=== PATIENT | female | born 1960 | race Caucasian/White ===

== ENCOUNTER 2022-09-18 17:40 | Inpatient (IN) | payer OTHER, SELFPAY ==
[2022-09-18] VITALS (29 sets, daily range): BP systolic 154–197; BP diastolic 90–135; PULSE 90–108; RESP 6–35; TEMP 36.8–37.1; O2SAT 80–97; BMI 30.1; BMI 28.6
--- NOTE | 2022-09-18 17:43 | ECG_ITS ---
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
--- NOTE | 2022-09-18 17:43 | XR_ITS ---
The [address] [address] Patient Name: JEWEL MARS MRN: [id number] date: 1960 Sex: F Assigned Patient Location: ED.MAIN Current Patient Location: ER Accession/Order Number: [id number] Exam Date: 09/18/2022 18:02 Report Date: 09/18/2022 18:39 At the request of: BLAS CHRISTIANSON Procedure: XR chest 1V EXAM: XR chest 1V HISTORY: COPD exacerbation COMPARISON: 06/09/2022 TECHNIQUE: Chest X-ray AP, 1 view FINDINGS: Support devices: None. Lungs/pleura: No pneumothorax. There is right lower lobe consolidation, representing pneumonia. There are persistent bilateral lower lobe reticular opacities, may represent fibrotic changes. Heart and mediastinum: Normal contours. Bones: No acute abnormality identified. Impression: right lower lobe consolidation, representing pneumonia. Posttreatment follow-up is recommended to evaluate resolution. Electronically authenticated by: MOY MESSER Date: 09/18/2022 18:39
[2022-09-18 18:03] LABS: Basophils Percent Auto 0.2 % (0.2-2.0); Eosinophils Percent Auto 0.5 % (0.9-7.0); Hematocrit 33.2 % (36.0-48.0); Hemoglobin 10.8 g/dL (12.0-16.0); Immature Granulocytes Abs Auto 0.01 10^3/uL (0.00-0.03); Immature Granulocytes Pct Auto 0.2 % (0.0-0.5); Lymphocytes Absolute Auto 0.7 10^3/uL (1.2-3.8); Mean Corpuscular HGB Conc 32.5 g/dL (29.9-35.2); Mean Corpuscular Hemoglobin 28.8 pg (26.7-34.0); Mean Corpuscular Volume 88.5 fL (81.0-99.0); Mean Platelet Volume 9.4 fL (9.5-13.5); Monocytes Absolute Auto 0.5 10^3/uL (0.3-0.8); Neutrophils Absolute Auto 4.5 10^3/uL (1.4-6.5); Neutrophils Percent Auto 79.1 % (43.0-75.0); Platelet Count 235 10^3/uL (150-450); Red Blood Count 3.75 10^6/uL (4.20-5.40); Red Cell Distribution Width 19.7 % (11.0-15.0); White Blood Count 5.7 10^3/uL (4.0-11.0)
--- NOTE | 2022-09-18 18:11 | PC.NURSE ---
pt is a poor historian related to home medications states they are at [facility] [place]- this nurse researches med list from [facility] and inputs medications from list at [facility]
--- NOTE | 2022-09-18 18:12 | PC.NURSE ---
covid swab obtained and sent to lab
[2022-09-18] MEDS: IPRATROPIUM/ALBUTEROL SULFATE 3 ML AMPUL.NEB IH (18:21)
[2022-09-18] MEDS: ALBUTEROL SULFATE 2.5 MG/3 ML VIAL NEB IH ×2 (18:21→22:43)
[2022-09-18 18:22] LABS: INR 0.95; Partial Thromboplastin Time 33.4 sec (22.3-36.2); Prothrombin Time 10.1 sec (9.0-11.6)
[2022-09-18 18:23] LABS: Lactate/Lactic Acid 0.8 mmol/L (0.4-2.0)
[2022-09-18 18:27] LABS: Alanine Aminotransferase 11 U/L (14-59); Albumin Globulin Ratio 0.8; Albumin Level 3.2 g/dL (3.4-5.0); Alkaline Phosphatase 153 U/L (46-116); Anion Gap 14.9; Aspartate Amino Transferase 10 U/L (15-37); BUN Creatinine Ratio 11.3; Bilirubin Total 0.5 mg/dL (0.2-1.0); Calcium 8.8 mg/dL (8.5-10.1); Chloride 93 mmol/L (98-107); Estimated GFR (African America >60 (>=60); Estimated GFR (Non-African Ame >60 (>=60); Globulin 4.2 g/dL; Glucose 131 mg/dL (74-106); Potassium 3.9 mmol/L (3.5-5.1); Sodium 129 mmol/L (136-145); Total Protein 7.4 g/dL (6.4-8.2); Troponin I High Sensitivity 5.7 pg/mL (4.0-51.3)
--- NOTE | 2022-09-18 18:38 | PC.NURSE ---
resp at [facility]
--- NOTE | 2022-09-18 18:56 | ED_ITS ---
HPI - SOB/Dyspnea General Chief Complaint: Shortness of Breath/Dyspnea Stated Complaint: SHORTNESS OF BREATH Time Seen by Provider: 09/18/22 17:43 Source: patient Mode of arrival: Wheelchair Limitations: no limitations History of Present Illness HPI Narrative: Patient is a 62-year-old female to history of chronic obstructive pulmonary disease who presents the emergency department for the evaluation of increasing shortness of breath over the last several days. She was referred from her PCP office for admission. She was eighty-nine percent on room air in the office, she does not wear home oxygen. She arrives hypoxic to the Emergency Room by private car. She denies chest pain. She has had cough with some sputum production but no fevers, chest pain or hemoptysis. She has a history of congestive heart failure and takes medications for diuretics daily. She does not believe she has been on any recent antibiotics or steroids Related Data Home Medications Medication Instructions Recorded Confirmed aspirin 162.5 mg capsule,extended 162.5 mg PO DAILY 09/18/22 09/18/22 release 24 hr furosemide 40 mg tablet 40 mg PO QDAY 09/18/22 09/18/22 gabapentin 600 mg tablet 600 mg PO Q8H 09/18/22 09/18/22 metoprolol succinate 100 mg 100 mg PO QDAY 09/18/22 09/18/22 tablet,extended release 24 hr oxcarbazepine 300 mg tablet 300 mg PO TID 09/18/22 09/19/22 oxybutynin chloride 5 mg tablet 5 mg PO BID 09/18/22 09/19/22 rivaroxaban 20 mg tablet (Xarelto) 20 mg PO Q24H 09/18/22 09/18/22 tizanidine 4 mg tablet 8 mg PO .QHS 09/18/22 09/19/22 venlafaxine 75 mg tablet 75 mg PO BID 09/18/22 09/19/22 Previous Rx's Medication Instructions Recorded levofloxacin 750 mg tablet 750 mg PO DAILY 7 days #7 tabs 09/21/22 prednisone 10 mg tablet 40 mg PO DAILY #32 tabs 09/21/22 Allergies Allergy/AdvReac Type Severity Reaction Status Date / Time No Known Drug Allergies Allergy Verified 09/18/22 17:45 Review of Systems ROS Constitutional Denies: fever or chills Ears, nose, mouth, and throat Denies: throat pain Cardiovascular Denies: chest pain Respiratory Reports: shortness of breath and cough Gastrointestinal Denies: nausea or vomiting Integumentary/Breast Denies: rash [facility] Medical History (Updated 09/18/22 @ 22:15 by Chris David MD) Surgical History (Updated 09/18/22 @ 21:18 by Seble Russell) Social History Gender Identity: female Exam Narrative Exam Narrative: Gen.: Awake, alert, in no distress Head: Normocephalic, atraumatic ENT: Moist mucous membranes Respiratory: No respiratory distress, hypoxic, inspiratory and expiratory wheezing with diminished lung sounds Cardio: Irregular, tachycardic Extremities: Moves extremities equally, no injuries noted Psych: Normal mood and affect Neuro: No focal neuro deficit Skin: Warm, dry, intact Constitutional Vital Signs - 24 hr 09/18/22 17:45 09/18/22 18:00 09/18/22 18:01 Temperature Pulse Rate Pulse Rate [Monitor] 107 H Respiratory Rate 20 Blood Pressure 168/104 H Blood Pressure [Left Arm] Pulse Oximetry 80 L 93 L Oxygen Delivery Method Room Air Nasal Cannula Oxygen Delivery Flow Rate 5 09/18/22 18:06 09/18/22 18:27 09/18/22 17:51 Temperature Pulse Rate 95 H Pulse Rate [Monitor] 98 H Respiratory Rate 18 6 L Blood Pressure Blood Pressure [Left Arm] Pulse Oximetry 94 L 95 94 L Oxygen Delivery Method Nasal Cannula Nasal Cannula Oxygen Delivery Flow Rate 2.5 2.5 09/18/22 17:53 09/18/22 17:53 09/18/22 17:53 Temperature Pulse Rate 95 H 107 H 103 H Pulse Rate [Monitor] Respiratory Rate 23 35 H 30 H Blood Pressure 192/122 H 192/122 H Blood Pressure [Left Arm] Pulse Oximetry 94 L 92 L 94 L Oxygen Delivery Method Oxygen Delivery Flow Rate 09/18/22 18:08 09/18/22 18:21 09/18/22 18:08 Temperature Pulse Rate 95 H 102 H 100 H Pulse Rate [Monitor] Respiratory Rate 28 H 20 29 H Blood Pressure 176/105 H 176/105 H Blood Pressure [Left Arm] Pulse Oximetry 94 L 92 L 92 L Oxygen Delivery Method Oxygen Delivery Flow Rate 09/18/22 18:15 09/18/22 18:30 09/18/22 18:32 Temperature Pulse Rate 105 H 96 H 105 H Pulse Rate [Monitor] Respiratory Rate 20 12 12 Blood Pressure 180/105 H 183/130 H 188/110 H Blood Pressure [Left Arm] Pulse Oximetry 94 L 93 L 97 Oxygen Delivery Method Oxygen Delivery Flow Rate 09/18/22 18:37 09/18/22 18:43 09/18/22 20:04 Temperature Pulse Rate 97 H Pulse Rate [Monitor] 108 H Respiratory Rate 20 18 Blood Pressure 154/90 H Blood Pressure [Left Arm] 188/110 H Pulse Oximetry 95 93 L Oxygen Delivery Method Nasal Cannula Oxygen Delivery Flow Rate 2.5 09/18/22 20:05 09/18/22 18:32 09/18/22 18:45 Temperature 98.2 F Pulse Rate 97 H 97 H Pulse Rate [Monitor] Respiratory Rate 16 17 Blood Pressure 188/110 H 176/103 H Blood Pressure [Left Arm] Pulse Oximetry 92 L 91 L Oxygen Delivery Method Oxygen Delivery Flow Rate 09/18/22 19:00 09/18/22 19:16 09/18/22 19:30 Temperature Pulse Rate 108 H 93 H 104 H Pulse Rate [Monitor] Respiratory Rate 23 21 20 Blood Pressure 155/132 H 197/135 H 170/109 H Blood Pressure [Left Arm] Pulse Oximetry 91 L 92 L 90 L Oxygen Delivery Method Oxygen Delivery Flow Rate 09/18/22 19:45 09/18/22 20:00 Temperature Pulse Rate 108 H 101 H Pulse Rate [Monitor] Respiratory Rate 19 21 Blood Pressure 163/110 H 161/102 H Blood Pressure [Left Arm] Pulse Oximetry 91 L 89 L Oxygen Delivery Method Oxygen Delivery Flow Rate Course Course Hospital Course: Patient admitted with Respiratory distress, acute hypoxia, tachycardia, uncontrolled hypertension, elevated BNP secondary to right lower lobe pneumonia with acute exacerbation of COPD with acute hypoxic respiratory failure. Started on IV antibiotics, aerosol treatments, IV antibiotics, sputum culture is still pending at this time but should be available later today or tomorrow, over last 24 hours patient has been able to be weaned off of her supplemental oxygen, examination is ambulating well without hypoxia this morning she will be discharged home in improving condition. Medications see list. Follow-up with me in the office in 2 to 3 days. Hyperkalemia this morning likely secondary to Aldactone potassium supplementation and diuresis. We will give 1 dose of Kayexalate. Hold her potassium and Aldactone at home. Vital Signs Vital signs: Vital Signs Pulse Rate 107 H 09/18/22 17:45 Respiratory Rate 20 09/18/22 17:45 Pulse Oximetry 80 L 09/18/22 17:45 Oxygen Delivery Method Room Air 09/18/22 17:45 Temperature 99.7 F H 09/21/22 05:27 Pulse Rate 91 H 09/21/22 05:27 Respiratory Rate 18 09/21/22 05:27 Blood Pressure 125/79 H 09/21/22 05:27 Pulse Oximetry 91 L 09/21/22 10:40 Oxygen Delivery Method Room Air 09/21/22 10:40 Oxygen Delivery Flow Rate 2 09/20/22 05:26 MDM - SOB/Dyspnea MDM Narrative Medical decision making narrative: Patient was treated with oxygen by nasal cannula with improvement of hypoxia, breathing treatments were given in the Emergency Room and she was also given Solu-Medrol. Sepsis order set was followed, although the patient was not given IV fluids she has a history of congestive heart failure and has a normal blood pressure. Chest x-ray shows a right lower lobe pneumonia and the patient was given azithromycin and Rocephin for pneumonia. Blood cultures are pending. Covid test was obtained. We will admit to the hospitalist service with further evaluation and treatment per Dr. Anand. Medical Records Attestation: I reviewed the patient's medical records. Lab Data Attestation: I reviewed the patient's lab results. Labs: Lab Results 09/18/22 Range/Units 17:55 WBC 5.7 (4.0-11.0) 10^3/uL RBC 3.75 L (4.20-5.40) 10^6/uL Hgb 10.8 L (12.0-16.0) g/dL Hct 33.2 L (36.0-48.0) % MCV 88.5 (81.0-99.0) fL MCH 28.8 (26.7-34.0) pg MCHC 32.5 (29.9-35.2) g/dL RDW 19.7 H (11.0-15.0) % Plt Count 235 (150-450) 10^3/uL MPV 9.4 L (9.5-13.5) fL Neut % (Auto) 79.1 H (43.0-75.0) % Lymph % (Auto) 12.0 L (20.5-60.0) % [place] % (Auto) 8.0 (1.7-12.0) % Eos % (Auto) 0.5 L (0.9-7.0) % Baso % (Auto) 0.2 (0.2-2.0) % Neut # (Auto) 4.5 (1.4-6.5) 10^3/uL Lymph # (Auto) 0.7 L (1.2-3.8) 10^3/uL [place] # (Auto) 0.5 (0.3-0.8) 10^3/uL Eos # (Auto) 0.0 (0.0-0.7) 10^3/uL Baso # (Auto) 0.0 (0.0-0.1) 10^3/uL Abs Immat Gran (auto) 0.01 (0.00-0.03) 10^3/uL Imm/Tot Granulo (auto) 0.2 (0.0-0.5) % PT 10.1 (9.0-11.6) sec INR 0.95 APTT 33.4 (22.3-36.2) sec Sodium 129 L (136-145) mmol/L Potassium 3.9 (3.5-5.1) mmol/L Chloride 93 L (98-107) mmol/L Carbon Dioxide 25.0 (21.0-32.0) mmol/L Anion Gap 14.9 BUN 6.0 L (7.0-18.0) mg/dL Creatinine 0.53 L (0.55-1.02) mg/dL Est GFR ( Amer) >60 (>=60) Est GFR (Non-Af Amer) >60 (>=60) BUN/Creatinine Ratio 11.3 Glucose 131 H (74-106) mg/dL Lactate 0.8 (0.4-2.0) mmol/L Calcium 8.8 (8.5-10.1) mg/dL Total Bilirubin 0.5 (0.2-1.0) mg/dL AST 10 L (15-37) U/L ALT 11 L (14-59) U/L Alkaline Phosphatase 153 H (46-116) U/L Troponin I High Sens 5.7 (4.0-51.3) pg/mL NT-Pro-B Natriuret Pep 4175.0 H* (<=900.0) pg/mL Total Protein 7.4 (6.4-8.2) g/dL Albumin 3.2 L (3.4-5.0) g/dL Globulin 4.2 g/dL Albumin/Globulin Ratio 0.8 Imaging Data Chest x-ray: Attestation: I have reviewed the pertinent imaging results. Radiologist's impression: Procedure: XR chest 1V EXAM: XR chest 1V HISTORY: COPD exacerbation COMPARISON: 06/09/2022 TECHNIQUE: Chest X-ray AP, 1 view FINDINGS: Support devices: None. Lungs/pleura: No pneumothorax. There is right lower lobe consolidation, representing pneumonia. There are persistent bilateral lower lobe reticular opacities, may represent fibrotic changes. Heart and mediastinum: Normal contours. Bones: No acute abnormality identified. Impression: right lower lobe consolidation, representing pneumonia. Posttreatment follow-up is recommended to evaluate resolution. Electronically authenticated by: MOY MESSER Date: 09/18/2022 18:39 ECG Data Attestation: ?I have reviewed the pertinent ECG results. (Atrial fibrillation at a rate of 108, no acute ST elevation or ectopy. EKG reviewed by attending physician) ECG interpretation date: 09/18/22 ECG interpretation time: 19:05 Discharge Plan Discharge Chief Complaint: Shortness of Breath/Dyspnea Clinical Impression: Community acquired pneumonia, COPD exacerbation Patient Disposition: Admitted As Inpatient Time of Disposition Decision: 19:08 Condition: Fair Discharge Date/Time: 09/18/22 20:49
[2022-09-18] MEDS: AZITHROMYCIN 500 MG in 0.9 % SODIUM CHLORIDE 250 ML IV (19:18)
[2022-09-18] MEDS: CEFTRIAXONE 1,000 MG in 0.9 % SODIUM CHLORIDE 50 ML 100 MG IV (19:20)
[2022-09-18] MEDS: METHYLPREDNISOLONE SOD SUCC PF 125 MG/2 ML VIAL IVP (19:20)
--- NOTE | 2022-09-18 21:40 | PC.NURSE ---
new saline lock inserted on 2nd attempt in the rt hand with a 22g cath.
--- NOTE | 2022-09-18 22:06 | W.PM.TELEPN ---
Progress Note: Subjective Subjective Interval history: SOB, chills, cough with rust collored sputum HPI: This ia 62 yo WF who was sent over her PCP office for evaluation of above complaints. Patient is a life long smoker (1PPD). She was not being feeling well lately with weakness, malase, chill, tardy cough with rust colored sputum Patient lives [place] and uses cane for ambulation. In ED she found to be hypoxic, had bronchospasm (corrected with O2, breathing treatments). Imaging studies suggestive of RLL infiltrate. Exam Narrative Exam Narrative: Obese, mild resp distress, lucid, cooperative Neck - supple, Tyroid not enlardged. Lungs - coarse BSs, decreased at bases, wheezing CVS - S1, SE ABd - obese, soft, NT, ND Ext - no C/C/E Neuro - CN Xii - X geoly intakt. Constitutional Vital Signs - 24 hr 09/18/22 17:45 09/18/22 18:00 09/18/22 18:01 Temperature Pulse Rate Pulse Rate [Monitor] 107 H Respiratory Rate 20 Blood Pressure 168/104 H Blood Pressure [Left Arm] Pulse Oximetry 80 L 93 L Oxygen Delivery Method Room Air Nasal Cannula Oxygen Delivery Flow Rate 5 09/18/22 18:06 09/18/22 18:27 09/18/22 17:51 Temperature Pulse Rate 95 H Pulse Rate [Monitor] 98 H Respiratory Rate 18 6 L Blood Pressure Blood Pressure [Left Arm] Pulse Oximetry 94 L 95 94 L Oxygen Delivery Method Nasal Cannula Nasal Cannula Oxygen Delivery Flow Rate 2.5 2.5 09/18/22 17:53 09/18/22 17:53 09/18/22 17:53 Temperature Pulse Rate 95 H 107 H 103 H Pulse Rate [Monitor] Respiratory Rate 23 35 H 30 H Blood Pressure 192/122 H 192/122 H Blood Pressure [Left Arm] Pulse Oximetry 94 L 92 L 94 L Oxygen Delivery Method Oxygen Delivery Flow Rate 09/18/22 18:08 09/18/22 18:21 09/18/22 18:08 Temperature Pulse Rate 95 H 102 H 100 H Pulse Rate [Monitor] Respiratory Rate 28 H 20 29 H Blood Pressure 176/105 H 176/105 H Blood Pressure [Left Arm] Pulse Oximetry 94 L 92 L 92 L Oxygen Delivery Method Oxygen Delivery Flow Rate 09/18/22 18:15 09/18/22 18:30 09/18/22 18:32 Temperature Pulse Rate 105 H 96 H 105 H Pulse Rate [Monitor] Respiratory Rate 20 12 12 Blood Pressure 180/105 H 183/130 H 188/110 H Blood Pressure [Left Arm] Pulse Oximetry 94 L 93 L 97 Oxygen Delivery Method Oxygen Delivery Flow Rate 09/18/22 18:37 09/18/22 18:43 09/18/22 20:04 Temperature Pulse Rate 97 H Pulse Rate [Monitor] 108 H Respiratory Rate 20 18 Blood Pressure 154/90 H Blood Pressure [Left Arm] 188/110 H Pulse Oximetry 95 93 L Oxygen Delivery Method Nasal Cannula Oxygen Delivery Flow Rate 2.5 09/18/22 20:05 09/18/22 18:32 09/18/22 18:45 Temperature 98.2 F Pulse Rate 97 H 97 H Pulse Rate [Monitor] Respiratory Rate 16 17 Blood Pressure 188/110 H 176/103 H Blood Pressure [Left Arm] Pulse Oximetry 92 L 91 L Oxygen Delivery Method Oxygen Delivery Flow Rate 09/18/22 19:00 09/18/22 19:16 09/18/22 19:30 Temperature Pulse Rate 108 H 93 H 104 H Pulse Rate [Monitor] Respiratory Rate 23 21 20 Blood Pressure 155/132 H 197/135 H 170/109 H Blood Pressure [Left Arm] Pulse Oximetry 91 L 92 L 90 L Oxygen Delivery Method Oxygen Delivery Flow Rate 09/18/22 19:45 09/18/22 20:00 09/18/22 20:59 Temperature 98.8 F Pulse Rate 108 H 101 H 102 H Pulse Rate [Monitor] Respiratory Rate 19 21 22 Blood Pressure 163/110 H 161/102 H Blood Pressure [Left Arm] 169/99 H Pulse Oximetry 91 L 89 L 91 L Oxygen Delivery Method Nasal Cannula Oxygen Delivery Flow Rate 2 09/18/22 20:59 09/18/22 21:03 09/18/22 21:35 Temperature Pulse Rate 103 H Pulse Rate [Monitor] Respiratory Rate Blood Pressure Blood Pressure [Left Arm] Pulse Oximetry 94 L 93 L Oxygen Delivery Method Nasal Cannula Nasal Cannula Oxygen Delivery Flow Rate 2 Progress Note: Objective Labs Labs: Short CBC 09/18/22 Range/Units 17:55 WBC 5.7 (4.0-11.0) 10^3/uL Hgb 10.8 L (12.0-16.0) g/dL Hct 33.2 L (36.0-48.0) % Plt Count 235 (150-450) 10^3/uL BMP 09/18/22 17:55 Sodium 129 L Potassium 3.9 Chloride 93 L Carbon Dioxide 25.0 BUN 6.0 L Creatinine 0.53 L Glucose 131 H Calcium 8.8 Liver Function 09/18/22 Range/Units 17:55 Total Bilirubin 0.5 (0.2-1.0) mg/dL AST 10 L (15-37) U/L ALT 11 L (14-59) U/L Alkaline Phosphatase 153 H (46-116) U/L Albumin 3.2 L (3.4-5.0) g/dL Progress Note: A&P Assessment and Plan (1) Community acquired pneumonia: Assessment and Plan: started on empiric broad spectrum ABxs F/U CXs (2) COPD exacerbation: Assessment and Plan: started on inhaled and systemic steroids and inhaled bronchodilators O supplementation ABxs as above (3) Afib: Assessment and Plan: rate/rhythm controlled. anticoagulated. Monitor on telemetry (4) Anticoagulated: Assessment and Plan: for stroke prevention with AFIb (5) Obesity: Assessment and Plan: differ for OP management (6) Tobacco abuse: Assessment and Plan: started on Niicotin patch Telemedicine Attestation Telemedicine Attestation I conducted this encounter from [place]] via secure live, [id number] video conference with the patient, located at [facility] with Pneumonia[]. Prior to the interview, the risks and benefits of telemedicine were discussed with the patient and verbal consent was obtained.
[2022-09-18] MEDS: NICOTINE 21 MG PATCH.TD24 TD (22:44)
[2022-09-18] MEDS: METHYLPREDNISOLONE SOD SUCC PF 40 MG/ML VIAL (22:44)
[2022-09-18] MEDS: GABAPENTIN 300 MG CAPSULE 600 MG PO (22:47)
[2022-09-18] MEDS: RIVAROXABAN 10 MG TABLET 20 MG PO (22:48)
[2022-09-19] VITALS (18 sets, daily range): BP systolic 121–160; BP diastolic 78–105; PULSE 75–100; RESP 18–20; TEMP 36.6–36.7; O2SAT 90–97; BMI 28.6
[2022-09-19 04:56] LABS: Hematocrit 31.4 % (36.0-48.0); Hemoglobin 10.1 g/dL (12.0-16.0); Immature Granulocytes Abs Auto 0.02 10^3/uL (0.00-0.03); Immature Granulocytes Pct Auto 0.5 % (0.0-0.5); Lymphocytes Absolute Auto 0.3 10^3/uL (1.2-3.8); Lymphocytes Percent Auto 7.6 % (20.5-60.0); Mean Corpuscular HGB Conc 32.2 g/dL (29.9-35.2); Mean Corpuscular Hemoglobin 28.1 pg (26.7-34.0); Mean Corpuscular Volume 87.2 fL (81.0-99.0); Mean Platelet Volume 9.9 fL (9.5-13.5); Monocytes Absolute Auto 0.1 10^3/uL (0.3-0.8); Monocytes Percent Auto 3.2 % (1.7-12.0); Neutrophils Absolute Auto 3.3 10^3/uL (1.4-6.5); Neutrophils Percent Auto 88.7 % (43.0-75.0); Platelet Count 224 10^3/uL (150-450); Red Cell Distribution Width 19.5 % (11.0-15.0); White Blood Count 3.7 10^3/uL (4.0-11.0)
[2022-09-19 05:20] LABS: Anion Gap 12.2; BUN Creatinine Ratio 10.8; Calcium 8.8 mg/dL (8.5-10.1); Carbon Dioxide 27.7 mmol/L (21.0-32.0); Chloride 96 mmol/L (98-107); Estimated GFR (African America >60 (>=60); Estimated GFR (Non-African Ame >60 (>=60); Glucose 147 mg/dL (74-106); Potassium 4.9 mmol/L (3.5-5.1); Sodium 131 mmol/L (136-145)
[2022-09-19] MEDS: GABAPENTIN 300 MG CAPSULE 600 MG PO ×3 (05:51→22:26)
--- NOTE | 2022-09-19 07:56 | P.HP_ITS ---
H&P: HPI History of Present Illness Chief complaint: SOB, Community Acquired Pneumonia, COPD Exacerb Narrative: Patient has been sick for about a week, no consult to the office, presented to the office yesterday with increasing shortness of breath difficulty ambulating secondary to the shortness of breath, and hypoxia in the office with a sat of 87%, heart rate high in the 110s, referred to ER for evaluation, patient found to have right lower lobe pneumonia with acute exacerbation of COPD patient is admitted for work-up and treatment of same Review of Systems ROS Constitutional Reports: fever and chills Cardiovascular Denies: chest pain or palpitations Respiratory Reports: shortness of breath, cough and wheezing Gastrointestinal Denies: abdominal pain, nausea or vomiting Genitourinary Denies: painful urination or urinary frequency Musculoskeletal Reports: back pain Neurological Denies: headache, numbness in extremities or difficulty communicating thoughts Psychiatric Denies: anxiety or mood swings Endocrine Denies: excessive urination Hematologic/Lymphatic Denies: easy bruising PFSH PFSH Medical History (Updated 09/18/22 @ 22:15 by Chris David MD) Surgical History (Updated 09/18/22 @ 21:18 by Seble Russell) Social History Gender Identity: female Meds Home Medications and Allergies Home Medications Medication Instructions Recorded Confirmed Type aspirin 162.5 mg capsule,extended 162.5 mg PO DAILY 09/18/22 09/18/22 History release 24 hr furosemide 40 mg tablet 40 mg PO QDAY 09/18/22 09/18/22 History gabapentin 600 mg tablet 600 mg PO Q8H 09/18/22 09/18/22 History metoprolol succinate 100 mg 100 mg PO QDAY 09/18/22 09/18/22 History tablet,extended release 24 hr oxcarbazepine 300 mg tablet 300 mg PO QDAY 09/18/22 09/18/22 History oxybutynin chloride 5 mg tablet 5 mg PO QDAY 09/18/22 09/18/22 History potassium chloride 20 mEq 20 meq PO QDAY 09/18/22 09/18/22 History tablet,extended release rivaroxaban 20 mg tablet (Xarelto) 20 mg PO Q24H 09/18/22 09/18/22 History spironolactone 25 mg tablet 25 mg PO QDAY 09/18/22 09/18/22 History tizanidine 4 mg tablet 8 mg PO .qhs 09/18/22 09/18/22 History venlafaxine 75 mg tablet 75 mg PO QDAY 09/18/22 09/18/22 History Allergies Allergy/AdvReac Type Severity Reaction Status Date / Time No Known Drug Allergies Allergy Verified 09/18/22 17:45 Exam Constitutional Vital Signs - 24 hr 09/18/22 17:45 09/18/22 18:00 09/18/22 18:01 Temperature Pulse Rate Pulse Rate [Monitor] 107 H Respiratory Rate 20 Blood Pressure 168/104 H Blood Pressure [Left Arm] Pulse Oximetry 80 L 93 L Oxygen Delivery Method Room Air Nasal Cannula Oxygen Delivery Flow Rate 5 09/18/22 18:06 09/18/22 18:27 09/18/22 17:51 Temperature Pulse Rate 95 H Pulse Rate [Monitor] 98 H Respiratory Rate 18 6 L Blood Pressure Blood Pressure [Left Arm] Pulse Oximetry 94 L 95 94 L Oxygen Delivery Method Nasal Cannula Nasal Cannula Oxygen Delivery Flow Rate 2.5 2.5 09/18/22 17:53 09/18/22 17:53 09/18/22 17:53 Temperature Pulse Rate 95 H 107 H 103 H Pulse Rate [Monitor] Respiratory Rate 23 35 H 30 H Blood Pressure 192/122 H 192/122 H Blood Pressure [Left Arm] Pulse Oximetry 94 L 92 L 94 L Oxygen Delivery Method Oxygen Delivery Flow Rate 09/18/22 18:08 09/18/22 18:21 09/18/22 18:08 Temperature Pulse Rate 95 H 102 H 100 H Pulse Rate [Monitor] Respiratory Rate 28 H 20 29 H Blood Pressure 176/105 H 176/105 H Blood Pressure [Left Arm] Pulse Oximetry 94 L 92 L 92 L Oxygen Delivery Method Oxygen Delivery Flow Rate 09/18/22 18:15 09/18/22 18:30 09/18/22 18:32 Temperature Pulse Rate 105 H 96 H 105 H Pulse Rate [Monitor] Respiratory Rate 20 12 12 Blood Pressure 180/105 H 183/130 H 188/110 H Blood Pressure [Left Arm] Pulse Oximetry 94 L 93 L 97 Oxygen Delivery Method Oxygen Delivery Flow Rate 09/18/22 18:37 09/18/22 18:43 09/18/22 20:04 Temperature Pulse Rate 97 H Pulse Rate [Monitor] 108 H Respiratory Rate 20 18 Blood Pressure 154/90 H Blood Pressure [Left Arm] 188/110 H Pulse Oximetry 95 93 L Oxygen Delivery Method Nasal Cannula Oxygen Delivery Flow Rate 2.5 09/18/22 20:05 09/18/22 18:32 09/18/22 18:45 Temperature 98.2 F Pulse Rate 97 H 97 H Pulse Rate [Monitor] Respiratory Rate 16 17 Blood Pressure 188/110 H 176/103 H Blood Pressure [Left Arm] Pulse Oximetry 92 L 91 L Oxygen Delivery Method Oxygen Delivery Flow Rate 09/18/22 19:00 09/18/22 19:16 09/18/22 19:30 Temperature Pulse Rate 108 H 93 H 104 H Pulse Rate [Monitor] Respiratory Rate 23 21 20 Blood Pressure 155/132 H 197/135 H 170/109 H Blood Pressure [Left Arm] Pulse Oximetry 91 L 92 L 90 L Oxygen Delivery Method Oxygen Delivery Flow Rate 09/18/22 19:45 09/18/22 20:00 09/18/22 20:59 Temperature 98.8 F Pulse Rate 108 H 101 H 102 H Pulse Rate [Monitor] Respiratory Rate 19 21 22 Blood Pressure 163/110 H 161/102 H Blood Pressure [Left Arm] 169/99 H Pulse Oximetry 91 L 89 L 91 L Oxygen Delivery Method Nasal Cannula Oxygen Delivery Flow Rate 2 09/18/22 20:59 09/18/22 21:03 09/18/22 21:35 Temperature Pulse Rate 103 H Pulse Rate [Monitor] Respiratory Rate Blood Pressure Blood Pressure [Left Arm] Pulse Oximetry 94 L 93 L Oxygen Delivery Method Nasal Cannula Nasal Cannula Oxygen Delivery Flow Rate 2 09/18/22 22:43 09/18/22 22:43 09/18/22 22:53 Temperature Pulse Rate 102 H 90 Pulse Rate [Monitor] Respiratory Rate 24 26 H Blood Pressure Blood Pressure [Left Arm] Pulse Oximetry 94 L 94 L 96 Oxygen Delivery Method Nasal Cannula Oxygen Delivery Flow Rate 2.5 09/18/22 23:31 09/19/22 01:24 09/19/22 03:24 Temperature Pulse Rate 91 H 80 83 Pulse Rate [Monitor] Respiratory Rate Blood Pressure Blood Pressure [Left Arm] Pulse Oximetry Oxygen Delivery Method Oxygen Delivery Flow Rate 09/19/22 04:25 09/19/22 05:32 Temperature 97.8 F Pulse Rate 91 H Pulse Rate [Monitor] Respiratory Rate 20 Blood Pressure Blood Pressure [Left Arm] 135/87 H Pulse Oximetry 90 L 93 L Oxygen Delivery Method Nasal Cannula Nasal Cannula Oxygen Delivery Flow Rate 2.5 2 Common normals: apparent distress (Difficult to keep awake) Exam limitations: altered mental status General appearance: not comfortable Nutritional appearance: obese Orientation/consciousness: Yes obtunded; not awake Chest Common normals: inspection of chest normal Respiratory Common normals: abnormal respiratory effort (Labored breathing) Effort & inspection: not able to speak in complete sentences Auscultation: rales, rhonchi and wheezes Cardio Common normals: irregular rate and irregular rhythm Rhythm: abnormal rhythm GI Common normals: Normal to inspection, nondistended, normoactive bowel sounds present Extremity Common normals: abnormal to inspection Results Labs Labs: Short CBC 09/18/22 09/19/22 Range/Units 17:55 04:10 WBC 5.7 3.7 L (4.0-11.0) 10^3/uL Hgb 10.8 L 10.1 L (12.0-16.0) g/dL Hct 33.2 L 31.4 L (36.0-48.0) % Plt Count 235 224 (150-450) 10^3/uL BMP 09/18/22 09/19/22 17:55 04:10 Sodium 129 L 131 L Potassium 3.9 4.9 Chloride 93 L 96 L Carbon Dioxide 25.0 27.7 BUN 6.0 L 7.0 Creatinine 0.53 L 0.65 Glucose 131 H 147 H Calcium 8.8 8.8 Liver Function 09/18/22 Range/Units 17:55 Total Bilirubin 0.5 (0.2-1.0) mg/dL AST 10 L (15-37) U/L ALT 11 L (14-59) U/L Alkaline Phosphatase 153 H (46-116) U/L Albumin 3.2 L (3.4-5.0) g/dL Assessment and Plan Assessment and Plan (1) Community acquired pneumonia: (2) COPD exacerbation: (3) Afib: (4) Anticoagulated: (5) Obesity: (6) Tobacco abuse: (7) Anemia: (8) Hypertension: (9) Mood disorder: Plan Respiratory distress, acute hypoxia, tachycardia, uncontrolled hypertension, elevated BNP secondary to right lower lobe pneumonia with acute exacerbation of COPD with acute hypoxic respiratory failure. She states she does not use supplemental oxygen at home. She is very obtunded this morning, will check ABG, increased her steroids, changed her antibiotics to add levofloxacin instead of Zithromax - Patient does meet criteria for sepsis (Tachycardia, respiratory distress, neutropenia with a source of infection right lower lobe) - Atrial fibrillation-rate is improving Elevated BNP-repeat result today, elevated BNP likely related to tachycardia, will check echocardiogram diurese with Lasix Iron deficiency anemia-monitor daily Hyponatremia-likely related to dehydration-improving slowly History of seizure disorder-continue with home medications and monitor Anxiety with depression-continue with home medications need to watch medications that would cause sedation Morbid obesity-diet management Patient with stay for more than 48 hours secondary to complications of the right lower lobe pneumonia with COPD, heart failure, tachycardia related to her atrial fibrillation, medical treatment to last more than 48 hours unable to improve in less than that time.
[2022-09-19] MEDS: BUDESONIDE 0.5 MG/2 ML AMPULE NEB IH ×2 (08:48→22:12)
[2022-09-19] MEDS: METHYLPREDNISOLONE SOD SUCC PF 40 MG/ML VIAL 125 MG IVP ×2 (09:24→18:17)
[2022-09-19] MEDS: POTASSIUM CHLORIDE 10 MEQ ER TABLET 20 MEQ PO (09:25)
[2022-09-19] MEDS: OXYBUTYNIN chloride 5 MG TABLET PO ×2 (09:25→20:21)
[2022-09-19] MEDS: OMEPRAZOLE 40 MG CAPSULE.DR PO (09:25)
[2022-09-19] MEDS: METOPROLOL SUCCINATE 100 MG TAB.ER.24H PO (09:25)
[2022-09-19] MEDS: SPIRONOLACTONE 25 MG TABLET PO (09:25)
[2022-09-19] MEDS: OXcarbazepine 300 MG TABLET PO ×3 (09:25→21:09)
[2022-09-19] MEDS: FUROSEMIDE 40 MG/4 ML VIAL 60 MG IVP (09:25)
--- NOTE | 2022-09-19 09:25 | CA_ITS ---
Patient: JEWEL MARS Exam Date: 09/19/2022 : 1960 Gender:F Ordering : DR Roman Anand . Admission #: [id number] Family : Order #: [id number] CLICK HERE TO VIEW EXAM ECHOCARDIOGRAM REPORT PROCEDURE: CA ECHO LIMITED INDICATIONS: CHF- AFIB RVR COMPARISON: None. DESCRIPTION: Limited ECHOCARDIOGRAM Real-time transthoracic echocardiography with 2D and M-mode performed. QUALITY: Technical quality was good. Limited echocardiogram per physician order. LEFT VENTRICLE: Small chamber size. Thickened septal wall. Normal systolic function. LV EF: Normal left ventricular ejection fraction, (>55%). DIASTOLIC: ATRIAL SEPTUM: LEFT ATRIUM: Moderate dilatation. RIGHT ATRIUM: Mild dilatation. Normal systolic function. RIGHT VENTRICLE: Normal chamber size. TRICUSPID VALVE: Normal mobility and thickness. MITRAL VALVE: Mildly thickened with normal mobility. Mild mitral annular calcification. AORTIC VALVE: Normal trileaflet appearance. Thickened aortic valve. Normal leaflet mobility. AORTIC ROOT: Normal diameter and appearance. PULMONIC VALVE: Normal thickness and mobility. PERICARDIUM: No evidence of pericardial effusion. IVC: PLEURA: CONCLUSION: 1. Normal ventricular systolic function. LVEF is 65%. 2. Mild to moderate biatrial dilatation. 3. The aortic valve opens well. 4. No pericardial effusion. 5. Limited study performed with no Doppler interrogation as requested. Adult Echocardiography Procedure Report Left Ventricle LVEDD (3.7 - 5.6 cm): 3.22 cm LVESD (2.2 - 4.0 cm): 2.39 cm LVIVS thickness (0.6 - 1.2 cm): 1.73 cm LVPW thickness (0.5 - 1.0 cm): 1.09 cm LVOT Diameter 2.15 cm Left Atrium LA Volume Index (2D A2C): 59.17 ml/m2 Left Atrium Systolic Dimension: 2.99 cm Mitral Valve Right Ventricle Aorta AO Root Diam: 3.06 cm Ascending Ao Diam: 3.05 cm Aortic Valve Tricuspid Valve Pulmonic Valve Right Atrium Right Atrium Systolic Pressure: 60.38 ml, 60.38 ml Dictated by: Naveen Guerin M.D. on 09/20/2022 at 17:53 Approved by: Naveen Guerin M.D. on 09/20/2022 at 17:56
[2022-09-19] MEDS: VENLAFAXINE HCL 37.5 MG TABLET 75 MG PO ×2 (09:26→20:21)
[2022-09-19] MEDS: ASPIRIN 81 MG TABLET.DR 162 MG PO (09:26)
[2022-09-19 10:57] LABS: Glucometer 126 mg/dL (74-106)
[2022-09-19 10:59] LABS: SARS-CoV-2 Ag NEGATIVE (NEGATIVE)
--- NOTE | 2022-09-19 11:59 | SWNOTE1 ---
SW met with pt to discuss dc needs. Pt lives at home by herself with her dog. Her daughter and her mother check on her. Pt uses a cane at home, she lives in a trailer and has a few steps to get in. Pt does not wear home oxygen, but is on oxygen here at hospital. Pt did express that she has stopped drinking and she is feeling well. Pt does not have any HH coming in currently. At this time pt denies any needs for discharge, SW to follow as needed.
[2022-09-19] MEDS: LEVOFLOXACIN IN DEXTROSE 5 % 750 MG/150 ML IV.SOLN 100 MG IV (12:11)
--- NOTE | 2022-09-19 14:09 | SWNOTE1 ---
SW went back in to talk with pt, as physical therapy did recommend home health. At this time pt does not want HH. She has concerns about her dog and he is vicious. Pt is more open to outpt therapy. Pt is going to think about it and SW to check back tomorrow.
[2022-09-19] MEDS: ACETAMINOPHEN 325 MG TABLET 650 MG PO ×2 (14:10→20:19)
--- NOTE | 2022-09-19 15:36 | SWNOTE1 ---
Sw did reach out to doctor and he is going to address HH or outpt therapy in the office.
[2022-09-19 16:10] LABS: ABG PCO2 40.9 mmHg (35.0-45.0); Allen Test POSITIVE (POSITIVE); Base Excess ABG 3.1 mmol/L (-2.0-2.0); HCO3 ABG 27.3 mmol/L (22.0-26.0); Oxygen Saturation ABG 94.3 %; PO2 ABG 68.1 mmHg (80.0-100.0); pH ABG 7.434 (7.350-7.450)
[2022-09-19 16:11] LABS: Liters per Minute 2; O2 Mode NC; Puncture Site LR
[2022-09-19] MEDS: IPRATROPIUM/ALBUTEROL SULFATE 3 ML AMPUL.NEB IH ×2 (16:48→22:12)
[2022-09-19 18:20] LABS: Glucometer 138 mg/dL (74-106)
[2022-09-19 20:02] LABS: Glucometer 187 mg/dL (74-106)
[2022-09-19] MEDS: CEFTRIAXONE 1,000 MG in 0.9 % SODIUM CHLORIDE 50 ML 100 MG IV (20:19)
[2022-09-19] MEDS: RIVAROXABAN 10 MG TABLET 20 MG PO (20:20)
[2022-09-19] MEDS: TIZANIDINE HCL 4 MG TABLET 8 MG PO (20:22)
[2022-09-19] MEDS: NICOTINE 21 MG PATCH.TD24 TD (21:09)
[2022-09-20] VITALS (13 sets, daily range): BP systolic 123–144; BP diastolic 75–88; PULSE 82–106; RESP 18–22; TEMP 36.6–37.3; O2SAT 90–98
[2022-09-20] MEDS: METHYLPREDNISOLONE SOD SUCC PF 40 MG/ML VIAL 125 MG IVP (00:43)
[2022-09-20] MEDS: IPRATROPIUM/ALBUTEROL SULFATE 3 ML AMPUL.NEB IH ×3 (04:10→16:58)
[2022-09-20 05:00] LABS: Hematocrit 28.7 % (36.0-48.0); Hemoglobin 9.3 g/dL (12.0-16.0); Immature Granulocytes Abs Auto 0.02 10^3/uL (0.00-0.03); Immature Granulocytes Pct Auto 0.5 % (0.0-0.5); Lymphocytes Absolute Auto 0.4 10^3/uL (1.2-3.8); Lymphocytes Percent Auto 8.8 % (20.5-60.0); Mean Corpuscular HGB Conc 32.4 g/dL (29.9-35.2); Mean Corpuscular Hemoglobin 28.4 pg (26.7-34.0); Mean Corpuscular Volume 87.8 fL (81.0-99.0); Mean Platelet Volume 9.9 fL (9.5-13.5); Monocytes Absolute Auto 0.2 10^3/uL (0.3-0.8); Monocytes Percent Auto 4.3 % (1.7-12.0); Neutrophils Absolute Auto 3.5 10^3/uL (1.4-6.5); Neutrophils Percent Auto 86.4 % (43.0-75.0); Platelet Count 208 10^3/uL (150-450); Red Blood Count 3.27 10^6/uL (4.20-5.40); Red Cell Distribution Width 19.2 % (11.0-15.0)
[2022-09-20] MEDS: OXcarbazepine 300 MG TABLET PO ×3 (05:02→21:08)
[2022-09-20 05:26] LABS: Alanine Aminotransferase 10 U/L (14-59); Albumin Globulin Ratio 0.7; Albumin Level 2.9 g/dL (3.4-5.0); Alkaline Phosphatase 118 U/L (46-116); Anion Gap 11.7; Aspartate Amino Transferase 9 U/L (15-37); Bilirubin Total 0.2 mg/dL (0.2-1.0); Calcium 8.9 mg/dL (8.5-10.1); Carbon Dioxide 27.6 mmol/L (21.0-32.0); Chloride 93 mmol/L (98-107); Estimated GFR (African America >60 (>=60); Estimated GFR (Non-African Ame >60 (>=60); Globulin 3.9 g/dL; Glucose 148 mg/dL (74-106); Potassium 4.3 mmol/L (3.5-5.1); Sodium 128 mmol/L (136-145); Total Protein 6.8 g/dL (6.4-8.2)
--- NOTE | 2022-09-20 05:54 | PC.NURSE ---
critical lab trending downward BNP 4553.0
[2022-09-20] MEDS: GABAPENTIN 300 MG CAPSULE 600 MG PO ×3 (05:57→21:58)
--- NOTE | 2022-09-20 08:03 | P.PN_ITS ---
Progress Note: Subjective Subjective Interval history: More awake this morning. Was unable to arouse her yesterday, much improved today. Still some dyspnea with conversation Exam Constitutional Vital Signs - 24 hr 09/19/22 14:00 09/19/22 10:07 09/19/22 12:02 Temperature 97.9 F Pulse Rate 94 H 91 H 88 Respiratory Rate 20 Blood Pressure [Left Arm] 160/105 H Pulse Oximetry 96 Oxygen Delivery Method Nasal Cannula Oxygen Delivery Flow Rate 2 09/19/22 14:20 09/19/22 16:29 09/19/22 17:06 Temperature Pulse Rate 86 90 Respiratory Rate Blood Pressure [Left Arm] Pulse Oximetry 97 Oxygen Delivery Method Nasal Cannula Oxygen Delivery Flow Rate 2.5 09/19/22 19:39 09/19/22 19:50 09/19/22 21:13 Temperature 98.1 F Pulse Rate 100 H 89 Respiratory Rate 20 18 Blood Pressure [Left Arm] 121/78 H Pulse Oximetry 91 L Oxygen Delivery Method Nasal Cannula Oxygen Delivery Flow Rate 2 09/19/22 21:45 09/19/22 22:12 09/19/22 22:29 Temperature Pulse Rate 81 79 Respiratory Rate 20 Blood Pressure [Left Arm] Pulse Oximetry 92 L 94 L Oxygen Delivery Method Nasal Cannula Nasal Cannula Oxygen Delivery Flow Rate 2.5 2.5 09/19/22 22:12 09/19/22 23:47 09/20/22 02:24 Temperature Pulse Rate 75 83 83 Respiratory Rate 20 Blood Pressure [Left Arm] Pulse Oximetry 92 L Oxygen Delivery Method Nasal Cannula Oxygen Delivery Flow Rate 2.5 09/20/22 04:10 09/20/22 04:21 09/20/22 04:00 Temperature Pulse Rate 95 H 99 H 106 H Respiratory Rate 18 20 Blood Pressure [Left Arm] Pulse Oximetry 92 L 97 Oxygen Delivery Method Room Air Nasal Cannula Oxygen Delivery Flow Rate 2.5 2.5 09/20/22 05:26 09/20/22 06:08 Temperature 98 F Pulse Rate 102 H Respiratory Rate 18 Blood Pressure [Left Arm] 136/88 H Pulse Oximetry 90 L Oxygen Delivery Method Room Air Oxygen Delivery Flow Rate 2 Common normals: oriented x3; apparent distress Exam limitations: no altered mental status General appearance: cooperative HENNM Common normals: moist oral mucous membranes Chest Common normals: inspection of chest normal Respiratory Common normals: no use of accessory muscles; abnormal respiratory effort and not clear to ascultation bilaterally Effort & inspection: symmetric chest movement Auscultation: rhonchi, wheezes and diminished lung sounds Cardio Common normals: irregular rate and irregular rhythm Rhythm: abnormal rhythm GI Common normals: Normal to inspection, nondistended, normoactive bowel sounds present, soft to palpation and non-tender Extremity Common normals: normal to inspection (No edema) Progress Note: Objective Labs Labs: Short CBC 09/20/22 Range/Units 04:07 WBC 4.0 (4.0-11.0) 10^3/uL Hgb 9.3 L (12.0-16.0) g/dL Hct 28.7 L (36.0-48.0) % Plt Count 208 (150-450) 10^3/uL BMP 09/20/22 04:07 Sodium 128 L Potassium 4.3 Chloride 93 L Carbon Dioxide 27.6 BUN 14.0 Creatinine 0.70 Glucose 148 H Calcium 8.9 Liver Function 09/20/22 Range/Units 04:07 Total Bilirubin 0.2 (0.2-1.0) mg/dL AST 9 L (15-37) U/L ALT 10 L (14-59) U/L Alkaline Phosphatase 118 H (46-116) U/L Albumin 2.9 L (3.4-5.0) g/dL Progress Note: A&P Assessment and Plan (1) Community acquired pneumonia: (2) COPD exacerbation: (3) Afib: (4) Anticoagulated: (5) Obesity: (6) Tobacco abuse: (7) Anemia: (8) Hypertension: (9) Mood disorder: Plan Respiratory distress, acute hypoxia, tachycardia, uncontrolled hypertension, elevated BNP secondary to right lower lobe pneumonia with acute exacerbation of COPD with acute hypoxic respiratory failure.? Overall improving -0 continue with current treatment plan, try to wean off of supplemental oxygen today. If able to be weaned off of supplemental oxygen without hypoxia overnight can be discharged home in improving condition tomorrow-we will DC telemetry Atrial fibrillation-rate is improving-We will DC telemetry Elevated BNP-repeat result today, elevated BNP likely related to tachycardia, will check echocardiogram diurese with Lasix-Improved today, check on echo r esults Iron deficiency anemia-monitor daily Hyponatremia-likely related to dehydration- down somewhat today likely secondary to the diuresis-monitor daily History of seizure disorder-continue with home medications and monitor Anxiety with depression-continue with home medications need to watch medications that would cause sedation Morbid obesity-diet management Patient with stay for more than 48 hours secondary to complications of the right lower lobe pneumonia with COPD, heart failure, tachycardia related to her atrial fibrillation, medical treatment to last more than 48 hours unable to improve in less than that time.
--- NOTE | 2022-09-20 08:49 | SWNOTE1 ---
SW stopped in to see pt. At this time she does not want any home health set up, she will let her PCP know if she wants it and he will set up as outpt.
[2022-09-20] MEDS: FUROSEMIDE 40 MG TABLET PO (08:52)
[2022-09-20] MEDS: METHYLPREDNISOLONE SOD SUCC PF 125 MG/2 ML VIAL IVP ×2 (08:53→16:35)
[2022-09-20] MEDS: METOPROLOL SUCCINATE 100 MG TAB.ER.24H PO (08:53)
[2022-09-20] MEDS: ASPIRIN 81 MG TABLET.DR 162 MG PO (08:53)
[2022-09-20] MEDS: POTASSIUM CHLORIDE 10 MEQ ER TABLET 20 MEQ PO (08:54)
[2022-09-20] MEDS: SPIRONOLACTONE 25 MG TABLET PO (08:54)
[2022-09-20] MEDS: OMEPRAZOLE 40 MG CAPSULE.DR PO (08:54)
[2022-09-20] MEDS: OXYBUTYNIN chloride 5 MG TABLET PO ×2 (08:54→21:06)
[2022-09-20] MEDS: VENLAFAXINE HCL 37.5 MG TABLET 75 MG PO ×2 (08:55→21:07)
[2022-09-20] MEDS: LEVOFLOXACIN IN DEXTROSE 5 % 750 MG/150 ML IV.SOLN 100 MG IV (09:00)
[2022-09-20] MEDS: ACETAMINOPHEN 325 MG TABLET 650 MG PO ×2 (09:01→18:20)
[2022-09-20] MEDS: BUDESONIDE 0.5 MG/2 ML AMPULE NEB IH (10:01)
--- NOTE | 2022-09-20 10:04 | RESP.RT ---
patient POX 98% ON 1.5 LITERS OF OXYGEN , RT placed PT on RA per wean order
[2022-09-20 11:20] LABS: Glucometer 131 mg/dL (74-106)
[2022-09-20 14:39] LABS: SARS-CoV-2 NAA NOT DETECTED (NOT DETECTE)
[2022-09-20 16:38] LABS: Glucometer 125 mg/dL (74-106)
[2022-09-20] MEDS: RIVAROXABAN 10 MG TABLET 20 MG PO (19:34)
[2022-09-20] MEDS: CEFTRIAXONE 1,000 MG in 0.9 % SODIUM CHLORIDE 50 ML 100 MG IV (19:34)
[2022-09-20 20:21] LABS: Glucometer 154 mg/dL (74-106)
[2022-09-20] MEDS: TIZANIDINE HCL 4 MG TABLET 8 MG PO (21:07)
[2022-09-20] MEDS: NICOTINE 21 MG PATCH.TD24 TD (21:07)
[2022-09-21] MEDS: METHYLPREDNISOLONE SOD SUCC PF 125 MG/2 ML VIAL IVP (02:45)
[2022-09-21 04:58] VITALS: PULSE 86; RESP 20; O2SAT 93
[2022-09-21] MEDS: IPRATROPIUM/ALBUTEROL SULFATE 3 ML AMPUL.NEB IH ×2 (04:58→10:36)
[2022-09-21 05:18] LABS: Hematocrit 29.1 % (36.0-48.0); Hemoglobin 9.5 g/dL (12.0-16.0); Immature Granulocytes Abs Auto 0.04 10^3/uL (0.00-0.03); Immature Granulocytes Pct Auto 0.8 % (0.0-0.5); Lymphocytes Absolute Auto 0.5 10^3/uL (1.2-3.8); Mean Corpuscular HGB Conc 32.6 g/dL (29.9-35.2); Mean Corpuscular Hemoglobin 28.3 pg (26.7-34.0); Mean Corpuscular Volume 86.6 fL (81.0-99.0); Mean Platelet Volume 9.8 fL (9.5-13.5); Monocytes Absolute Auto 0.4 10^3/uL (0.3-0.8); Monocytes Percent Auto 7.7 % (1.7-12.0); Neutrophils Absolute Auto 3.9 10^3/uL (1.4-6.5); Neutrophils Percent Auto 80.5 % (43.0-75.0); Platelet Count 208 10^3/uL (150-450); Red Blood Count 3.36 10^6/uL (4.20-5.40); Red Cell Distribution Width 19.5 % (11.0-15.0); White Blood Count 4.8 10^3/uL (4.0-11.0)
[2022-09-21 05:21] LABS: Alanine Aminotransferase 14 U/L (14-59); Albumin Globulin Ratio 0.9; Alkaline Phosphatase 107 U/L (46-116); Anion Gap 8.3; Aspartate Amino Transferase 15 U/L (15-37); BUN Creatinine Ratio 24.2; Bilirubin Total 0.2 mg/dL (0.2-1.0); Calcium 8.6 mg/dL (8.5-10.1); Carbon Dioxide 31.4 mmol/L (21.0-32.0); Chloride 91 mmol/L (98-107); Estimated GFR (African America >60 (>=60); Estimated GFR (Non-African Ame >60 (>=60); Globulin 3.4 g/dL; Glucose 118 mg/dL (74-106); Potassium 5.7 mmol/L (3.5-5.1); Sodium 125 mmol/L (136-145); Total Protein 6.4 g/dL (6.4-8.2)
[2022-09-21 05:27] VITALS: BP 125/79; PULSE 91; RESP 18; TEMP 37.6; O2SAT 90
[2022-09-21] MEDS: GABAPENTIN 300 MG CAPSULE 600 MG PO (06:04)
[2022-09-21] MEDS: OXcarbazepine 300 MG TABLET PO (06:05)
--- NOTE | 2022-09-21 08:17 | XR_ITS ---
The [address] [address] Patient Name: JEWEL MARS MRN: [id number] date: 1960 Sex: F Assigned Patient Location: [place] Current Patient Location: [place] Accession/Order Number: [id number] Exam Date: 09/21/2022 09:15 Report Date: 09/21/2022 10:25 At the request of: EDDIE MADDEN Procedure: XR chest 2V EXAM: XR chest 2V HISTORY: follow up RLL pneumonia - R rib pain COMPARISON: Chest radiographs from 09/18/2022 TECHNIQUE: PA and lateral radiographs of the chest. FINDINGS: Bilateral multifocal airspace opacities most notably at the right lung base. Right pleural effusion which is increased from prior. No pneumothorax. The cardiac size is enlarged. Pulmonary vascular congestion. No acute osseous abnormality. IMPRESSION: 1. Right pleural effusion is increased from prior. 2. Cardiomegaly, pulmonary vascular congestion multifocal airspace opacities most notably at the right lung base. Consider multifocal infectious process and/or component of pulmonary edema. Electronically authenticated by: SILKE JIMENEZ Date: 09/21/2022 10:25
--- NOTE | 2022-09-21 08:20 | P.DS_ITS ---
DS: Providers Provider Date of admission: 09/18/22 20:49 Primary care physician: Roman Anand MD Consults: 09/19/22 07:53 Physical Therapy Eval and Treat Routine DS: Diagnosis Discharge Diagnosis (1) Community acquired pneumonia: (2) COPD exacerbation: (3) Afib: (4) Anticoagulated: (5) Obesity: (6) Tobacco abuse: (7) Anemia: (8) Hypertension: (9) Mood disorder: Plan Respiratory distress, acute hypoxia, tachycardia, uncontrolled hypertension, elevated BNP secondary to right lower lobe pneumonia with acute exacerbation of COPD with acute hypoxic respiratory failure. Atrial fibrillation - RVR Elevated BNP Iron deficiency anemia Hyponatremia History of seizure disorder Anxiety with depression Morbid obesity DS: Summary Hospital Course Hospital Course: Patient admitted with Respiratory distress, acute hypoxia, tachycardia, uncontrolled hypertension, elevated BNP secondary to right lower lobe pneumonia with acute exacerbation of COPD with acute hypoxic respiratory failure. Started on IV antibiotics, aerosol treatments, IV antibiotics, sputum culture is still pending at this time but should be available later today or tomorrow, over last 24 hours patient has been able to be weaned off of her supplemental oxygen, examination is ambulating well without hypoxia this morning she will be discharged home in improving condition. Medications see list. Follow-up with me in the office in 2 to 3 days. Hyperkalemia this morning likely secondary to Aldactone potassium supplementation and diuresis. We will give 1 dose of Kayexalate. Hold her potassium and Aldactone at home. Status at Discharge Functional status at discharge: uses cane/walker Time Spent with Patient Time attestation: Total time spent providing and/or coordinating discharge services: Exam Constitutional Vital Signs - 24 hr 09/20/22 08:28 09/20/22 10:04 09/20/22 14:00 Temperature 99.1 F Pulse Rate 96 H 95 H Respiratory Rate 20 Blood Pressure [Left Arm] 144/80 H Pulse Oximetry 98 90 L Oxygen Delivery Method Room Air 09/20/22 17:00 09/20/22 19:23 09/20/22 20:00 Temperature Pulse Rate 82 Respiratory Rate 20 Blood Pressure [Left Arm] Pulse Oximetry 93 L Oxygen Delivery Method Room Air 09/20/22 20:30 09/21/22 04:58 09/21/22 05:27 Temperature 97.8 F 99.7 F H Pulse Rate 100 H 86 91 H Respiratory Rate 22 20 18 Blood Pressure [Left Arm] 123/75 H 125/79 H Pulse Oximetry 92 L 93 L 90 L Oxygen Delivery Method Room Air Room Air Room Air Common normals: no apparent distress (No more conversational dyspnea) Chest Common normals: inspection of chest normal Respiratory Common normals: no use of accessory muscles; abnormal respiratory effort (Still somewhat labored with her breathing but overall much improved from ad) Effort & inspection: able to speak in complete sentences and symmetric chest movement Auscultation: rhonchi and diminished lung sounds Cardio Common normals: no JVD Rate: tachycardic Rhythm: abnormal rhythm GI Common normals: Normal to inspection, nondistended, normoactive bowel sounds present Psych Common normals: mental status grossly normal DS: Data Data Completed and Pending Labs on day of discharge: Labs from last 24 hours 09/21/22 09/21/22 09/20/22 04:35 04:30 20:21 WBC 4.8 RBC 3.36 L Hgb 9.5 L Hct 29.1 L MCV 86.6 MCH 28.3 MCHC 32.6 RDW 19.5 H Plt Count 208 MPV 9.8 Neut % (Auto) 80.5 H Lymph % (Auto) 11.0 L [place] % (Auto) 7.7 Eos % (Auto) 0.0 L Baso % (Auto) 0.0 L Neut # (Auto) 3.9 Lymph # (Auto) 0.5 L [place] # (Auto) 0.4 Eos # (Auto) 0.0 Baso # (Auto) 0.0 Abs Immat Gran (auto) 0.04 H Imm/Tot Granulo (auto) 0.8 H Sodium 125 L Potassium 5.7 H Chloride 91 L Carbon Dioxide 31.4 Anion Gap 8.3 BUN 16.0 Creatinine 0.66 Est GFR ( Amer) >60 Est GFR (Non-Af Amer) >60 BUN/Creatinine Ratio 24.2 Glucose 118 H Calcium 8.6 Total Bilirubin 0.2 AST 15 ALT 14 Alkaline Phosphatase 107 NT-Pro-B Natriuret Pep 3335.0 H* Total Protein 6.4 Albumin 3.0 L Globulin 3.4 Albumin/Globulin Ratio 0.9 SARS-CoV-2 RNA (ESTUARDO) POC Glucose 154 H 09/20/22 09/20/22 09/19/22 16:35 11:20 10:21 WBC RBC Hgb Hct MCV MCH MCHC RDW Plt Count MPV Neut % (Auto) Lymph % (Auto) [place] % (Auto) Eos % (Auto) Baso % (Auto) Neut # (Auto) Lymph # (Auto) [place] # (Auto) Eos # (Auto) Baso # (Auto) Abs Immat Gran (auto) Imm/Tot Granulo (auto) Sodium Potassium Chloride Carbon Dioxide Anion Gap BUN Creatinine Est GFR ( Amer) Est GFR (Non-Af Amer) BUN/Creatinine Ratio Glucose Calcium Total Bilirubin AST ALT Alkaline Phosphatase NT-Pro-B Natriuret Pep Total Protein Albumin Globulin Albumin/Globulin Ratio SARS-CoV-2 RNA (ESTUARDO) Not detected POC Glucose 125 H 131 H Preliminary micro results at discharge 09/18/22 18:30 Blood Culture Result 1 - Preliminary Blood NO GROWTH AT 36-48 HOURS. FINAL TO FOLLOW. 09/18/22 17:55 Blood Culture Result 1 - Preliminary Blood NO GROWTH AT 36-48 HOURS. FINAL TO FOLLOW. Discharge Plan Discharge Disposition: Home, Self-Care Condition: Fair Discharge Medications: New prednisone 10 mg tablet 40 mg PO DAILY Qty: 32 0RF Rx Instructions: 4/day for 3 days, 3/day for 3 days, 2/day for 3 days, 1/day for 3 days, 1/2 /day for 4 days levofloxacin 750 mg tablet 750 mg PO DAILY 7 Days Qty: 7 0RF Continued furosemide 40 mg tablet 40 mg PO QDAY Patient Comments: pt does not know any of her medications gabapentin 600 mg tablet 600 mg PO Q8H Patient Comments: pt does not know any of her medications metoprolol succinate 100 mg tablet extended release 24 hr 100 mg PO QDAY Patient Comments: pt does not know any of her medications oxcarbazepine 300 mg tablet 300 mg PO TID Patient Comments: pt does not know any of her medications oxybutynin chloride 5 mg tablet 5 mg PO BID Patient Comments: pt does not know any of her medications Xarelto 20 mg tablet 20 mg PO Q24H Patient Comments: pt does not know any of her medications tizanidine 4 mg tablet 8 mg PO .QHS Patient Comments: pt does not know any of her medications venlafaxine 75 mg tablet 75 mg PO BID Patient Comments: pt does not know any of her medications aspirin 162.5 mg capsule,extended release 24hr 162.5 mg PO DAILY Patient Comments: Pt only knows that she take a double aspirin and thinks she took it today Discontinued potassium chloride 20 mEq tablet extended release 20 meq PO QDAY Patient Comments: pt does not know any of her medications spironolactone 25 mg tablet 25 mg PO QDAY Patient Comments: pt does not know any of her medications Forms: Portal Instructions
[2022-09-21] MEDS: METHYLPREDNISOLONE SOD SUCC PF 125 MG/2 ML VIAL 60 MG IVP (08:33)
[2022-09-21] MEDS: SODIUM POLYSTYRENE SULFON/SORB 15 GM/60 ML ORAL.SUSP 30 GM PO (08:33)
[2022-09-21] MEDS: METOPROLOL SUCCINATE 100 MG TAB.ER.24H PO (08:34)
[2022-09-21] MEDS: OMEPRAZOLE 40 MG CAPSULE.DR PO (08:34)
[2022-09-21] MEDS: VENLAFAXINE HCL 37.5 MG TABLET 75 MG PO (08:34)
[2022-09-21] MEDS: ACETAMINOPHEN 325 MG TABLET 650 MG PO (08:34)
[2022-09-21] MEDS: ASPIRIN 81 MG TABLET.DR 162 MG PO (08:35)
[2022-09-21] MEDS: OXYBUTYNIN chloride 5 MG TABLET PO (08:35)
[2022-09-21] MEDS: LEVOFLOXACIN IN DEXTROSE 5 % 750 MG/150 ML IV.SOLN 100 MG IV (09:59)
[2022-09-21] MEDS: BUDESONIDE 0.5 MG/2 ML AMPULE NEB IH (10:36)
[2022-09-21 10:40] VITALS: O2SAT 91
--- NOTE | 2022-09-21 10:45 | RESP.RT ---
HR pre HHN 89, Post HHN 117 Rolando well, Loose NPC
== END 2022-09-21 13:20 | disposition home or self-care (01) | DRG 193 ==
LOC: ER 19:40 → MS 20:55
PROVIDERS: Physician Assistant; Admitting Provider Internal Medicine; Emergency Provider Emergency Medicine; PCP Family Medicine; Visit Provider Family Medicine
DX: J18.9 Pneumonia, unspecified organism (principal); J96.01 Acute respiratory failure with hypoxia; J44.0 Chronic obstructive pulmonary disease with (acute) lower respiratory infection; J44.1 Chronic obstructive pulmonary disease with (acute) exacerbation; E87.1 Hypo-osmolality and hyponatremia; I48.91 Unspecified atrial fibrillation; F17.210 Nicotine dependence, cigarettes, uncomplicated; I11.0 Hypertensive heart disease with heart failure; I50.9 Heart failure, unspecified; D50.9 Iron deficiency anemia, unspecified; F41.9 Anxiety disorder, unspecified; F32.A Depression, unspecified; G40.909 Epilepsy, unspecified, not intractable, without status epilepticus; R79.89 Other specified abnormal findings of blood chemistry; E66.9 Obesity, unspecified; R41.82 Altered mental status, unspecified; E87.5 Hyperkalemia; T50.0X5A Adverse effect of mineralocorticoids and their antagonists, initial encounter; T50.3X5A Adverse effect of electrolytic, caloric and water-balance agents, initial encounter; Z79.82 Long term (current) use of aspirin; Z79.01 Long term (current) use of anticoagulants; Z79.899 Other long term (current) drug therapy; Z99.89 Dependence on other enabling machines and devices; Z20.822 Contact with and (suspected) exposure to COVID-19; Z68.30 Body mass index [BMI] 30.0-30.9, adult
CPT/HCPCS: 36415; 36416; 36600; 71045; 71046; 80048; 80053; 82805; 82948; 83605; 83880; 84484; 85025; 85610; 85730; 87040; 87070; 87106; 87205; 87635; 87811; 93005; 93308; 94640; 94761; 96365; 96366; 96367; 96368; 96375; 96376; 97162; 99285; J0456; J2920; J2930; Q3014

== ENCOUNTER 2022-10-04 16:14 | Outpatient (OUT) | payer OTHER, SELFPAY ==
[2022-10-04 17:02] LABS: Anion Gap 9.1; BUN Creatinine Ratio 16.9; Calcium 8.4 mg/dL (8.5-10.1); Carbon Dioxide 28.5 mmol/L (21.0-32.0); Chloride 93 mmol/L (98-107); Estimated GFR (African America >60 (>=60); Estimated GFR (Non-African Ame >60 (>=60); Glucose 101 mg/dL (74-106); Potassium 4.6 mmol/L (3.5-5.1); Sodium 126 mmol/L (136-145)
== END 2022-10-04 16:15 | disposition home or self-care (01) ==
PROVIDERS: PCP Family Medicine; Visit Provider Internal Medicine Cardiovascular Disease
DX: I48.0 Paroxysmal atrial fibrillation (principal); I13.0 Hypertensive heart and chronic kidney disease with heart failure and stage 1 through stage 4 chronic kidney disease, or unspecified chronic kidney disease
CPT/HCPCS: 36415; 80048; 83880

== ENCOUNTER 2022-10-14 11:31 | Outpatient (OUT) | payer OTHER, SELFPAY ==
[2022-10-14 12:56] LABS: Anion Gap 11.9; BUN Creatinine Ratio 19.4; Calcium 8.4 mg/dL (8.5-10.1); Carbon Dioxide 28.9 mmol/L (21.0-32.0); Chloride 93 mmol/L (98-107); Estimated GFR (African America >60 (>=60); Estimated GFR (Non-African Ame >60 (>=60); Glucose 91 mg/dL (74-106); Potassium 4.8 mmol/L (3.5-5.1); Sodium 129 mmol/L (136-145)
== END 2022-10-14 11:32 | disposition home or self-care (01) ==
LOC: LAB 11:32
PROVIDERS: PCP Family Medicine; Visit Provider Nurse Practitioner
DX: I10 Essential (primary) hypertension (principal); I50.32 Chronic diastolic (congestive) heart failure; R60.0 Localized edema
CPT/HCPCS: 36415; 80048; 83880

== ENCOUNTER 2022-10-26 11:32 | Outpatient (OUT) | payer OTHER, SELFPAY ==
[2022-10-26 12:25] LABS: Alanine Aminotransferase 14 U/L (14-59); Albumin Level 3.6 g/dL (3.4-5.0); Alkaline Phosphatase 121 U/L (46-116); Anion Gap 12.9; Aspartate Amino Transferase 19 U/L (15-37); BUN Creatinine Ratio 11.9; Bilirubin Total 0.4 mg/dL (0.2-1.0); Calcium 8.3 mg/dL (8.5-10.1); Carbon Dioxide 25.9 mmol/L (21.0-32.0); Chloride 91 mmol/L (98-107); Estimated GFR (African America >60 (>=60); Estimated GFR (Non-African Ame >60 (>=60); Globulin 3.6 g/dL; Glucose 90 mg/dL (74-106); Potassium 3.8 mmol/L (3.5-5.1); Sodium 126 mmol/L (136-145); Total Protein 7.2 g/dL (6.4-8.2)
== END 2022-10-26 11:33 | disposition home or self-care (01) ==
PROVIDERS: PCP Family Medicine; Visit Provider Nurse Practitioner Acute Care
DX: I50.32 Chronic diastolic (congestive) heart failure (principal)
CPT/HCPCS: 36415; 80053